=== PATIENT | male | born 1965 | race Caucasian/White ===

== ENCOUNTER → 2021-01-29 | Outpatient (CLI) | payer OTHER ==
[2021-01-29 07:41] LABS: BASO # 0.1 x10^3/uL (0.0-0.2); BASO % 1 % (0-3); EOS # 0.1 x10^3/uL (0.0-0.7); EOS % 2 % (0-3); HEMATOCRIT 43.4 % (39.0-53.0); HEMOGLOBIN 14.8 g/dL (13.0-17.5); LYMPH # 1.4 x10^3/uL (1.0-4.8); LYMPH % 23 % (24-48); MEAN CORPUSCULAR HEMOGLOBIN 33 pg (25-35); MEAN CORPUSCULAR HGB CONC 34 g/dL (31-37); MEAN CORPUSCULAR VOLUME 97 fL (79-100); MONO # 0.5 x10^3/uL (0.0-1.1); MONO % 8 % (0-9); NEUT % 67 % (31-73); PLATELET COUNT 197 x10^3/uL (140-400); RED BLOOD COUNT 4.48 x10^6/uL (4.30-5.70); RED CELL DISTRIBUTION WIDTH 13.6 % (11.5-14.5)
== END ==
LOC: LAB 07:17
PROVIDERS: ATTEND Family Medicine
DX: R53.83 Other fatigue (principal); N52.9 Male erectile dysfunction, unspecified
CPT/HCPCS: 36415; 82533; 84402; 84403; 84436; 84443; 85025

== ENCOUNTER → 2021-03-12 | Outpatient (CLI) | payer OTHER ==
--- NOTE | 2021-03-12 11:29 | PDOC ---
Progress Note - Pain Clinic Date of Service: DOS: DATE: 03/12/21 TIME: 11:26 Diagnosis: Dx: Lumbar radiculopathy with lumbar degenerative disc disease Right piriformis syndrome Right hip joint pain History or Present Illness: HPI: 55-year-old male returns to follow-up status post lumbar epidural steroid injection as well as right piriformis injection patient reports his right piriformis injection about 80% improvement which is still helping that was on January 17, 2021. Patient reports still significant pain however in the right groin has been doing physical therapy and has completed that now with the follow-up progress note from his physical therapist that we received as well with good progress with the pain still has significant pain with working now as he has a very physical profession and is having some pain now in the right groin as well as in the posterior hip on the right side which is becoming more noticeable with walking standing as well as sitting for more than about 1 hour patient reports is a nine on scale 10 is worse over the past week five on average three its least is a five today describes aching dull tingling radiating and radiating to the right groin with weightbearing standing walking put all his weight on his right foot as well as prolonged sitting. Patient reports no motor loss no bowel or bladder incontinence and feels overall that he is better he did have some side effect from the steroids previously from the epidural injections but that is beginning to resolve as well. Patient have his testosterone level checked which was in the low normal range and is planning on seeing a [facility] for this in the near future. Patient reports no new bowel or bladder incontinence no motor or sensory deficits. Physical Exam: VS: Blood pressure is 126/91 pulse 85 respirations 18 temperature 90.3 F height 5 feet 8 inches weight 177 pounds PE: PHYSICAL EXAMINATION: GENERAL: The patient is awake, alert, oriented, appropriate, very pleasant in demeanor HEENT: Shows normocephalic, atraumatic. Extraocular movements are intact and symmetrical. Oral cavity: Mucous membranes moist and pink. Dentition is intact. NECK: Shows anterior throat supple without palpable lymphadenopathy noted. Swallow reflex symmetrical. CHEST: Shows normal on inspection. Breath sounds are clear bilaterally, distant no rales rhonchi wheezes auscultated. HEART: Shows S1, S2 clear. No murmurs auscultated. ABDOMEN: Soft, nontender, nondistended. No palpable organomegaly is noted. BACK: Shows spine grossly in the midline. Normal-appearing cervical lordotic curvature. There is slightly increased thoracic kyphosis, some minor flattening of the lumbar lordotic curvature. Lumbar paraspinous muscles show symmetrical on inspection, on palpation shows some moderate tenderness diffusely throughout the upper, middle and lower distribution of the paraspinous muscles without specific trigger points, without radiation of pain. The patient has good rotational motion of the lumbar spine, both laterally as well as extension and flexion without significant difficulty. EXTREMITIES: Lower extremities show deep tendon reflexes 2+ in the patellar and tendo calcaneus tendons. Motor exam is four on a scale of 5 with right dorsiflexion, extension, quadriceps and hamstring flexion and five/5 on the left. Peripheral pulses are one posterior tibial. No peripheral edema is noted bilaterally. Lower extremities are warm and dry to touch, equal in color and appearance. Patient has significant pain with right external rotation and posterior displacement of the right hip with a positive Sagar sign left side is negative. SKIN: Shows warm and dry, good turgor. No edema. No sores, rashes or bruising throughout. Procedure: Procedure: Options were discussed with the patient. Patient chart reviewed his current medication regimen updated current review of systems updated today as well. We will send patient for new x-rays of the bilateral hips as he is having significant pain in the right hip with right groin pain consistent with positive Sagar's maneuver on the right. Patient to follow-up after x-rays of the hips and we will discuss the findings and proceed with further plan at that time. Medication Injected: Med Injected: None Condition at Discharge: Condition at Discharge: Condition at discharge is stable. X-rays pending bilateral hip joints. CAMILLE JONES MD Mar 12, 2021 11:29
--- NOTE | 2021-03-12 17:35 | RAD ---
EXAM: XR HIP (WITH OR WITHOUT PELVIS) 1 VIEW 03/12/2021 11:39 AM CLINICAL INDICATION: Right hip pain COMPARISON: CT abdomen pelvis 03/25/2018 TECHNIQUE: AP view the pelvis and AP and frog-leg lateral view of the right and left hip FINDINGS: No acute fracture. Alignment is normal. There is mild bilateral hip joint space narrowing. The pubic symphysis and sacroiliac joints are normal. There are phleboliths in the pelvis. Unchanged bone island in the right femoral head. Hernia mesh material in the right lower quadrant. IMPRESSION: Mild degenerative joint disease of the hips. Electronically signed by: Mary Juares MD (03/12/2021 5:32 PM) [id number]
== END | disposition home or self-care (01) ==
LOC: PNCL 09:37
PROVIDERS: ATTEND Anesthesiology
DX: M25.551 Pain in right hip (principal); M16.0 Bilateral primary osteoarthritis of hip; M51.16 Intervertebral disc disorders with radiculopathy, lumbar region; G57.01 Lesion of sciatic nerve, right lower limb; Z79.899 Other long term (current) drug therapy
CPT/HCPCS: 73521; 99212; G0463

== ENCOUNTER → 2021-04-23 | Outpatient (CLI) | payer OTHER ==
--- NOTE | 2021-04-23 16:27 | RAD ---
INDICATION: Reason: Right Groin Pain; Eval for recurrent hernia-Hernia repair 20 yrs ago / Spl. Inst ructions: / History: COMPARISON: October 10, 2020 FINDINGS: Focused ultrasound images are obtained of the right groin at the region of concern for pain. No subcutaneous fluid collection or mass is seen. A definite hernia sac is not identified with postop erative changes to the region. IMPRESSION: * No definite hernia sac is seen on focused ultrasound of the right inguinal region. Electronically signed by: Aroldo Pope MD (04/23/2021 4:25 PM) [id number]
== END ==
LOC: US 16:11
PROVIDERS: ATTEND Surgery
DX: R10.31 Right lower quadrant pain (principal)
CPT/HCPCS: 76881

== ENCOUNTER → 2021-08-29 | Outpatient (CLI) | payer OTHER ==
[2021-08-29 22:08] LABS: LUTEINIZING HORMONE 7.3 mIU/mL (1.7-8.6); PROLACTIN 6.5 ng/mL (4.0-15.2); TESTOSTERONE TOTAL 265 ng/dL (264-916)
== END ==
LOC: LAB 08:17
PROVIDERS: ATTEND Urology
DX: E29.1 Testicular hypofunction (principal)
CPT/HCPCS: 36415; 83001; 83002; 84146; 84403

== ENCOUNTER → 2021-11-03 | Outpatient (CLI) | payer OTHER ==
--- NOTE | 2021-11-03 13:05 | PDOC4 ---
Procedure Note: ICD 10 Code: ICD 10 Code: G8 9.18 Procedure Note: Patient was consented for right ilioinguinal nerve block. Risk were discussed including but not limited to bleeding infection possibility of intravascular injection sequelae spread of local anesthetic and numbness as well as poor results regarding pain control. Patient understands wished to proceed. Patient in supine position under sterile prep and drape right ilioinguinal re gion was identified and sterilely prepped and draped area approximate 2 cm medial and 2 cm inferior to the anterior superior iliac spine was then identified and using local anesthetic was locally anesthetized using a 25-gauge needle. This time, 25-gauge needle was advanced through the fascial layers with good popping sensation after negative aspiration a total of 5 cc 0.25% bupiva chen was injected in a fan like fashion through the fascial layers. Needle was withdrawn and sterile bandage was applied. Patient tolerated the procedure well and had no complications. CAMILLE JONES MD November 03, 2021 13:05
--- NOTE | 2021-11-03 13:05 | PDOC ---
Progress Note - Pain Clinic Date of Service: DOS: DATE: 11/03/21 TIME: 13:00 Diagnosis: Dx: Lumbar radiculopathy lumbar degenerative disc disease Right piriformis syndrome Right hip joint pain Postoperative chronic pain status post inguinal herniorrhaphy History or Present Illness: HPI: 56-year-old male returns for follow-up status post right piriformis injection as well as previous lumbar epidural steroid injections with about 80% improvement in his low back right lower extremity pain his chief complaint today however is right groin pain status post right inguinal hernia repair with mesh. Patient has significant pain he is seen his general surgeon recently not recommending any surgery revisions or other surgical treatment at this time. Patient reports still significant pain in the right groin worse with walking standing changing positions better with sitting or lying down but wakes him from sleep about every 5 hours or so. Patient reports he is recently seen a urologist has had a prostate biopsy with some mild latent cells of cancerous origin but nothing to be treated currently and they are watching the cells at this time. Patient reports the pain is worse with exercising walking standing changing positions getting up from seated position better with bicycle riding and nonimpact activity patient reports pain is aching and sharp and dull alternating in the right groin burning and tingling can be constant as well at times. Patient rates as 8 on scale 10 is worse over the past week for an average 4 to [place] is a 4 today. Physical Exam: VS: Blood pressure is 140/103 pulse 91 respirations 18 temperature 98.3 F height is 5 feet 8 inches weight is 179 pounds. PE: PHYSICAL EXAMINATION: GENERAL: The patient is awake, alert, oriented, appropriate, very pleasant in demeanor HEENT: Shows normocephalic, atraumatic. Extraocular movements are intact and symmetrical. Oral cavity: Mucous membranes moist and pink. Dentition is intact. NECK: Shows anterior throat supple without palpable lymphadenopathy noted. Swallow reflex symmetrical. CHEST: Shows normal on inspection. Breath sounds are clear bilaterally. HEART: Shows S1, S2 clear. No murmurs auscultated. ABDOMEN: Soft, nontender, nondistended. No palpable organomegaly is noted. BACK: Shows spine grossly in the midline. Normal-appearing cervical lordotic curvature. There is slightly increased thoracic kyphosis, some minor flattening of the lumbar lordotic curvature. Lumbar paraspinous muscles show symmetrical on inspection, on palpation shows some moderate tenderness diffusely throughout the upper, middle and lower distribution of the paraspinous muscles without specific trigger points, without radiation of pain. The patient has good rotational motion of the lumbar spine, both laterally as well as extension and flexion without significant difficulty. EXTREMITIES: Lower extremities show deep tendon reflexes 2+ in the patellar and tendo calcaneus tendons. Motor exam is 4 on a scale of 5 with right dorsiflexion, extension, quadriceps and hamstring flexion and 5/5 on the left. Peripheral pulses are 1+ posterior tibial. No peripheral edema is noted bilaterally. Lower extremities are warm and dry. Patient's right groin shows well-healed surgical scarring with palpation some significant tenderness inferior to the anterior superior iliac spine and medial to the spine as well. No radiation is demonstrated with palpation. Left side is nontender. SKIN: Shows warm and dry, good turgor. No edema. No sores, rashes or bruising throughout. Procedure: Procedure: Options were discussed with the patient. Patient's old chart was reviewed as her current medication regimen updated current review of systems updated today as well. We will proceed with a right ilioinguinal nerve block today. Risk discussed including but not limited to bleeding infection possibility of intravascular injection sequelae spread local anesthetic numbness, and poor results regarding pain control. Patient understands wished to proceed. Patient will return to clinic in approximately 2 weeks for follow-up, was counseled as to return appointment, activity level, and side effects to be aware of. Medication Injected: Med Injected: Patient in supine position under sterile prep and drape right ilioinguinal region was identified and sterilely prepped and draped area approximate 2 cm medial and 2 cm inferior to the anterior superior iliac spine was then identified and using local anesthetic was locally anesthetized using a 25-gauge needle. This time, 25-gauge needle was advanced through the fascial layers with good popping sensation after negative aspiration a total of 5 cc 0.25% bupivacaine was injected in a fan like fashion through the fascial layers. Needle was withdrawn and sterile bandage was applied. Patient tolerated the procedure well and had no complications. Condition at Discharge: Condition at Discharge: Condition at discharge stable, patient tolerated procedure well and had no complications. CAMILLE JONES MD November 03, 2021 13:05
== END | disposition home or self-care (01) ==
LOC: PNCL 11:20
PROVIDERS: ATTEND Anesthesiology
DX: G89.18 Other acute postprocedural pain (principal); M51.16 Intervertebral disc disorders with radiculopathy, lumbar region; G57.01 Lesion of sciatic nerve, right lower limb; M25.551 Pain in right hip; Z79.899 Other long term (current) drug therapy
CPT/HCPCS: 64425